=== PATIENT | female | born 1975 | race Hispanic/Latino ===

== ENCOUNTER 2022-08-31 22:54 | Emergency (ER) | payer OTHER, SELFPAY ==
[2022-08-31] MEDS ORDERED: hydrOXYzine 25 MG TAB ONE (23:59)
== END 2022-09-01 00:04 | disposition home or self-care (01) ==
LOC: ERS 22:54
DX: F43.9 Reaction to severe stress, unspecified (principal); F41.0 Panic disorder [episodic paroxysmal anxiety]
CPT/HCPCS: 36416; 71045; 93005